=== PATIENT | male | born 1965 | race African-American/Black ===

== ENCOUNTER 2020-06-30 09:53 | Emergency (ER) | payer MEDICAID, OTHER ==
[~2020-06-30] VITALS: Ht 170.2 cm; Wt 117.0 kg
[2020-06-30] MEDS ORDERED: LIDOCAINE 5% PATCH TOP SCH (10:15)
[2020-06-30] MEDS ORDERED: ACETAMINOPHEN 325MG TABLET PO ONE (10:15)
[2020-06-30 10:49] LABS: BASOPHILS % 0.4 % (0.0-2.0); EOSINOPHILS % 1.2 % (0.0-5.0); HEMATOCRIT. 41.1 % (42.0-52.0); HEMOGLOBIN. 14.6 g/dL (14.0-18.0); LYMPHOCYTES % 27.4 % (20.0-50.0); MEAN CORPUSCULAR VOLUME 81.8 fL (80.0-94.0); MEAN PLATELET VOLUME 10.4 fl (7.4-10.4); MONOCYTES % 5.5 % (2.0-8.0); NEUTROPHILS % 65.5 % (40.0-76.0); PLATELET 229 x1000/uL (130-400); RED BLOOD CELL COUNT 5.02 mill/uL (4.7-6.1); RED CELL DISTRIBUTION WIDTH 13.9 % (11.6-14.6)
[2020-06-30 10:58] LABS: *BARBITURATES SCREEN URINE NEGATIVE (NEGATIVE); *COCAINE SCREEN URINE NEGATIVE (NEGATIVE); CHLORIDE 103 mEq/L (98-107)
[2020-06-30 10:59] LABS: *AMPHETAMINES SCREEN URINE NEGATIVE (NEGATIVE); *BENZODIAZEPINES SCREEN URINE NEGATIVE (NEGATIVE); CANNABINOID URINE SCREEN NEGATIVE (NEGATIVE); METHADONE URINE SCREEN NEGATIVE (NEGATIVE); OPIATES URINE SCREEN NEGATIVE (NEGATIVE); PHENCYCLIDINE URINE SCREEN NEGATIVE (NEGATIVE)
[2020-06-30 11:02] LABS: ETHANOL BLOOD < 10 mg/dL
[2020-06-30] MEDS ORDERED: ASPIRIN 325MG EC TABLET PO ONE (15:15)
[2020-06-30] MEDS ORDERED: DEXT 5%/0.9% NACL 500 ML IV ONE (16:45)
[2020-06-30] MEDS ORDERED: HYDRALAZINE 20MG/ML VIAL IV ONE (18:00)
[2020-06-30 19:38] VITALS: BP 158/99
== END 2020-06-30 19:40 | disposition left against medical advice (07) ==
LOC: ER 09:53
DX: R53.1 Weakness (principal); R55 Syncope and collapse; I10 Essential (primary) hypertension; R94.31 Abnormal electrocardiogram [ECG] [EKG]; E86.0 Dehydration; Z20.822 Contact with and (suspected) exposure to COVID-19; Z53.29 Procedure and treatment not carried out because of patient's decision for other reasons
CPT/HCPCS: 36415; 71045; 80053; 80305; 80320; 82962; 83880; 84484; 85025; 87426; 93005; 96361; 96374; 99285; J0360; J7042; G0480

== ENCOUNTER 2021-09-02 16:07 | Emergency (ER) | payer OTHER ==
[~2021-09-02] VITALS: Ht 172.7 cm; Wt 122.0 kg
[~2021-09-02 16:07] MED LIST: ATOR20TA MT; GABA-532 MT; HYDR-4009 MT; HYDR25TA MT; INSU100I28 SQ; LISI20TA31 MT
[2021-09-02 16:15] VITALS: BP 124/91
== END 2021-09-02 23:10 | disposition left against medical advice (07) ==
LOC: ER 16:07
DX: Z53.21 Procedure and treatment not carried out due to patient leaving prior to being seen by health care provider (principal)

== ENCOUNTER 2021-11-17 10:49 | Emergency (ER) | payer MEDICAID, OTHER ==
[~2021-11-17] VITALS: Ht 177.8 cm; Wt 110.0 kg
[2021-11-17 12:36] LABS: BASOPHILS % 0.6 % (0.0-2.0); EOSINOPHILS % 1.4 % (0.0-5.0); HEMATOCRIT. 35.2 % (42.0-52.0); HEMOGLOBIN. 12.4 g/dL (14.0-18.0); LYMPHOCYTES % 15.8 % (20.0-50.0); MEAN CORPUSCULAR HEMOGLOBIN 29.2 pg (28.0-32.0); MEAN CORPUSCULAR VOLUME 82.7 fL (80.0-94.0); MEAN PLATELET VOLUME 10.5 fl (7.4-10.4); MONOCYTES % 7.3 % (2.0-8.0); NEUTROPHILS % 74.9 % (40.0-76.0); PLATELET 218 x1000/uL (130-400); RED BLOOD CELL COUNT 4.26 mill/uL (4.7-6.1); RED CELL DISTRIBUTION WIDTH 14.2 % (11.6-14.6)
[2021-11-17] MEDS ORDERED: ACETAMINOPHEN 325MG TABLET PO NR (12:45)
[2021-11-17 12:48] LABS: CHLORIDE 107 mEq/L (98-107)
[2021-11-17 13:09] LABS: ETHANOL BLOOD < 10 mg/dL
[2021-11-17 13:55] LABS: CLARITY URINE CLEAR (CLEAR); COLOR URINE YELLOW (YELLOW)
[2021-11-17 13:57] LABS: PROTEIN URINE 3+ (NEGATIVE); SPECIFIC GRAVITY URINE 1.019 (1.005-1.030)
[2021-11-17 13:58] LABS: KETONES URINE NEGATIVE (NEGATIVE); NITRITE URINE NEGATIVE (NEGATIVE); OCCULT BLOOD URINE NEGATIVE (NEGATIVE); UROBILINOGEN URINE 0.2 E.U./dL (0.2-1.0)
[2021-11-17 13:59] LABS: LEUKOCYTE ESTERASE URINE NEGATIVE (NEGATIVE)
[2021-11-17 14:42] LABS: *AMPHETAMINES SCREEN URINE NEGATIVE (NEGATIVE); *BARBITURATES SCREEN URINE NEGATIVE (NEGATIVE); *BENZODIAZEPINES SCREEN URINE NEGATIVE (NEGATIVE); *COCAINE SCREEN URINE NEGATIVE (NEGATIVE); CANNABINOID URINE SCREEN NEGATIVE (NEGATIVE); METHADONE URINE SCREEN NEGATIVE (NEGATIVE); OPIATES URINE SCREEN NEGATIVE (NEGATIVE); PHENCYCLIDINE URINE SCREEN NEGATIVE (NEGATIVE)
[2021-11-17] MEDS ORDERED: ACYCLOVIR 200MG CAPSULE PO NR (15:15)
[2021-11-17] MEDS ORDERED: CEPHALEXIN 250MG CAPSULE PO NR (15:15)
[2021-11-17] MEDS ORDERED: CEPH500C2 MT (15:17)
[2021-11-17] MEDS ORDERED: ACET-2708 MT (15:17)
[2021-11-17] MEDS ORDERED: ACYC200C31 MT (15:17)
[2021-11-17 15:31] VITALS: BP 146/86
== END 2021-11-17 15:32 | disposition home or self-care (01) ==
LOC: ER 12:41
DX: B02.9 Zoster without complications (principal); L03.811 Cellulitis of head [any part, except face]; I10 Essential (primary) hypertension; E11.9 Type 2 diabetes mellitus without complications
CPT/HCPCS: 36415; 80053; 80305; 80320; 81003; 85025; 99283; G0480

== ENCOUNTER 2021-12-16 11:29 | Emergency (ER) | payer MEDICAID, OTHER ==
[~2021-12-16] VITALS: Ht 175.3 cm; Wt 105.0 kg
[~2021-12-16 11:29] MED LIST changes: +ACET-2708 MT; +ACYC200C31 MT; +CEPH500C2 MT
[2021-12-16 11:44] VITALS: BP 164/86
[2021-12-16] MEDS ORDERED: BO1 TP (13:43)
[2021-12-16] MEDS ORDERED: CEPH500T MT (13:43)
== END 2021-12-16 14:02 | disposition home or self-care (01) ==
LOC: ER 11:29
DX: L73.9 Follicular disorder, unspecified (principal)
CPT/HCPCS: 99283

== ENCOUNTER 2022-01-31 15:13 | Emergency (ER) | payer OTHER ==
[~2022-01-31] VITALS: Ht 177.8 cm; Wt 115.0 kg
[~2022-01-31 15:13] MED LIST changes: +BO1 TP; +CEPH500T MT
[2022-01-31 15:31] VITALS: BP 172/84
[2022-02-01] MEDS ORDERED: SULF1TAB47 MT (09:27)
== END 2022-01-31 21:35 | disposition left against medical advice (07) ==
LOC: ER 15:23
DX: Z53.21 Procedure and treatment not carried out due to patient leaving prior to being seen by health care provider (principal)

== ENCOUNTER 2022-02-01 08:42 | Emergency (ER) | payer MEDICARE, MEDICAID ==
[~2022-02-01] VITALS: Ht 175.3 cm; Wt 127.0 kg
[2022-02-01 08:48] VITALS: BP 192/91
[2022-02-01] MEDS ORDERED: SULF1TAB47 MT (09:27)
[2022-02-01] MEDS ORDERED: ACETAMINOPHEN 325MG TABLET PO ONE (09:30)
== END 2022-02-01 10:01 | disposition home or self-care (01) ==
LOC: ER 08:42
DX: L03.311 Cellulitis of abdominal wall (principal); B02.9 Zoster without complications; R51.9 Headache, unspecified; I10 Essential (primary) hypertension; E11.9 Type 2 diabetes mellitus without complications; E78.00 Pure hypercholesterolemia, unspecified; Z79.4 Long term (current) use of insulin; Z79.899 Other long term (current) drug therapy
CPT/HCPCS: 99282; 99283

== ENCOUNTER 2022-02-15 08:43 | Inpatient (IN) | payer MEDICAID, MEDICARE, OTHER ==
[~2022-02-15] VITALS: Ht 172.7 cm; Wt 137.9 kg
[~2022-02-15 08:43] MED LIST changes: +SULF1TAB47 MT
[2022-02-15] MEDS ORDERED: ASPIRIN 325MG EC TABLET PO NR (09:45)
[2022-02-15 10:02] LABS: BASOPHILS % 0.7 % (0.0-2.0); EOSINOPHILS % 2.1 % (0.0-5.0); HEMATOCRIT. 33.3 % (42.0-52.0); HEMOGLOBIN. 11.4 g/dL (14.0-18.0); LYMPHOCYTES % 21.7 % (20.0-50.0); MEAN CORPUSCULAR VOLUME 84.8 fL (80.0-94.0); MEAN PLATELET VOLUME 9.9 fl (7.4-10.4); MONOCYTES % 7.1 % (2.0-8.0); NEUTROPHILS % 68.4 % (40.0-76.0); PLATELET 248 x1000/uL (130-400); RED BLOOD CELL COUNT 3.93 mill/uL (4.7-6.1); RED CELL DISTRIBUTION WIDTH 14.7 % (11.6-14.6)
[2022-02-15 10:20] LABS: CHLORIDE 109 mEq/L (98-107)
[2022-02-15 10:30] LABS: ETHANOL BLOOD < 10 mg/dL
[2022-02-15 10:51] LABS: *AMPHETAMINES SCREEN URINE NEGATIVE (NEGATIVE); *BARBITURATES SCREEN URINE NEGATIVE (NEGATIVE); *BENZODIAZEPINES SCREEN URINE NEGATIVE (NEGATIVE); *COCAINE SCREEN URINE NEGATIVE (NEGATIVE); CANNABINOID URINE SCREEN NEGATIVE (NEGATIVE); METHADONE URINE SCREEN NEGATIVE (NEGATIVE); OPIATES URINE SCREEN NEGATIVE (NEGATIVE); PHENCYCLIDINE URINE SCREEN NEGATIVE (NEGATIVE)
[2022-02-15] MEDS ORDERED: HYDROCHLOROTHIAZIDE 25MG TABLET PO ONE (13:15)
[2022-02-15] MEDS: CLONIDINE 0.2MG TABLET PO SCH ×2 (19:08→19:10)
[2022-02-15 20:30] VITALS: BP 150/89
[2022-02-15 20:50] VITALS: BP 176/81
[2022-02-15 21:02] VITALS: BP 176/81
[2022-02-15] MEDS ORDERED: DEXTROSE 50% WATER 50ML SYRINGE IV PRN (22:30)
[2022-02-16] VITALS: BP 146/75
[2022-02-16 04:00] VITALS: BP 159/79
[2022-02-16 06:58] LABS: BASOPHILS % 0.6 % (0.0-2.0); EOSINOPHILS % 2.3 % (0.0-5.0); HEMATOCRIT. 34.4 % (42.0-52.0); HEMOGLOBIN. 11.9 g/dL (14.0-18.0); LYMPHOCYTES % 25.1 % (20.0-50.0); MEAN CORPUSCULAR HEMOGLOBIN 29.2 pg (28.0-32.0); MEAN PLATELET VOLUME 10.1 fl (7.4-10.4); MONOCYTES % 7.7 % (2.0-8.0); NEUTROPHILS % 64.3 % (40.0-76.0); PLATELET 228 x1000/uL (130-400); RED BLOOD CELL COUNT 4.09 mill/uL (4.7-6.1); RED CELL DISTRIBUTION WIDTH 15.3 % (11.6-14.6)
[2022-02-16] MEDS: INSULIN LISPRO 100 UNITS/ML SUBCUT SCH ×4 (07:12→21:58)
[2022-02-16] MEDS: BLOOD SUGAR DIAGNOSTIC STRIP TEST SCH ×4 (07:13→21:00)
[2022-02-16 08:00] VITALS: BP 98/63
[2022-02-16] MEDS: ASPIRIN 81MG TABLET PO SCH (08:23)
[2022-02-16] MEDS: GABAPENTIN 300MG CAPSULE PO SCH ×3 (08:24→17:41)
[2022-02-16] MEDS ORDERED: LISINOPRIL 20MG TABLET PO SCH (09:00)
[2022-02-16] MEDS ORDERED: FUROSEMIDE 40MG TABLET PO SCH (09:00)
[2022-02-16] MEDS ORDERED: METOPROLOL SUCCINATE 50MG ER TABLET PO SCH (09:00)
[2022-02-16] MEDS ORDERED: INSULIN GLARGINE 100 UNITS/ML SUBCUT SCH ×2 (10:00→22:00)
[2022-02-16 12:00] VITALS: BP 160/94
[2022-02-16] MEDS: AMLODIPINE 5MG TABLET PO SCH (12:50)
[2022-02-16] MEDS ORDERED: REGADENOSON 0.4 MG/5 ML IV NR (13:45)
[2022-02-16] MEDS: CARVEDILOL 6.25 MG TABLET PO SCH ×2 (14:23→21:55)
[2022-02-16 16:00] VITALS: BP 155/65
[2022-02-16] MEDS: FUROSEMIDE 40MG/4ML VIAL IVP SCH (17:40)
[2022-02-16 20:00] VITALS: BP 146/61
[2022-02-16] MEDS ORDERED: ATORVASTATIN CALCIUM 20MG TABLET PO SCH (21:00)
[2022-02-17] VITALS: BP 117/54
[2022-02-17 04:00] VITALS: BP 143/65
[2022-02-17] MEDS: INSULIN LISPRO 100 UNITS/ML SUBCUT SCH ×3 (06:39→11:43)
[2022-02-17] MEDS: BLOOD SUGAR DIAGNOSTIC STRIP TEST SCH ×2 (06:39→11:37)
[2022-02-17] MEDS: FUROSEMIDE 40MG/4ML VIAL IVP SCH (06:39)
[2022-02-17 08:00] VITALS: BP 147/80
[2022-02-17] MEDS ORDERED: LISINOPRIL 20MG TABLET PO SCH (09:00)
[2022-02-17] MEDS ORDERED: AMLODIPINE 5MG TABLET PO SCH (09:00)
[2022-02-17] MEDS ORDERED: INSULIN GLARGINE 100 UNITS/ML SUBCUT SCH (10:00)
[2022-02-17] MEDS: ASPIRIN 81MG TABLET PO SCH (11:40)
[2022-02-17] MEDS: GABAPENTIN 300MG CAPSULE PO SCH (11:40)
[2022-02-17] MEDS: CARVEDILOL 6.25 MG TABLET PO SCH (11:41)
[2022-02-17] MEDS: AMLODIPINE 5MG TABLET PO SCH (11:41)
[2022-02-17 12:00] VITALS: BP 151/89
[2022-02-17] MEDS ORDERED: COR6 PO (16:11)
[2022-02-17] MEDS ORDERED: FURO-151 MT (16:52)
== END 2022-02-17 20:00 | disposition home or self-care (01) | DRG 198 ==
LOC: ER 08:43 → 8WST 14:49
PROVIDERS: ADMIT Internal Medicine; ATTEND Internal Medicine
DX: I20.0 Unstable angina (principal); I50.33 Acute on chronic diastolic (congestive) heart failure; E11.22 Type 2 diabetes mellitus with diabetic chronic kidney disease; I16.0 Hypertensive urgency; Z20.822 Contact with and (suspected) exposure to COVID-19; I13.0 Hypertensive heart and chronic kidney disease with heart failure and stage 1 through stage 4 chronic kidney disease, or unspecified chronic kidney disease; N18.9 Chronic kidney disease, unspecified; E78.00 Pure hypercholesterolemia, unspecified; E66.9 Obesity, unspecified; E11.65 Type 2 diabetes mellitus with hyperglycemia; Z68.42 Body mass index [BMI] 45.0-49.9, adult; Z87.891 Personal history of nicotine dependence; Z79.4 Long term (current) use of insulin; Z82.49 Family history of ischemic heart disease and other diseases of the circulatory system; Z83.3 Family history of diabetes mellitus
CPT/HCPCS: 36415; 71045; 78452; 80048; 80053; 80061; 80305; 80320; 82962; 83036; 83880; 84484; 85025; 87426; 93005; 93017; 93306; 99285; A9500; J1815; J1940; J2785; G0480

== ENCOUNTER 2022-04-22 16:53 | Emergency (ER) | payer MEDICARE, OTHER ==
[~2022-04-22] VITALS: Ht 175.3 cm; Wt 128.0 kg
[~2022-04-22 16:53] MED LIST changes: +COR6 PO; +FURO-151 MT
[2022-04-22 17:16] VITALS: BP 160/70
[2022-04-22] MEDS ORDERED: CEPH500T PO (18:55)
[2022-04-22] MEDS ORDERED: SULF1TAB48 PO (18:55)
[2022-04-22] MEDS ORDERED: VALA100044 PO (20:08)
== END 2022-04-22 20:20 | disposition home or self-care (01) ==
LOC: ER 16:53
DX: B02.8 Zoster with other complications (principal); L03.221 Cellulitis of neck
CPT/HCPCS: 99283

== ENCOUNTER 2022-04-27 07:27 | Emergency (ER) | payer MEDICARE, OTHER ==
[~2022-04-27] VITALS: Ht 175.3 cm; Wt 127.0 kg
[~2022-04-27 07:27] MED LIST changes: +CEPH500T PO; +SULF1TAB48 PO; +VALA100044 PO
[2022-04-27 07:37] VITALS: BP 191/75
[2022-04-27] MEDS ORDERED: TOPUD PO (08:00)
== END 2022-04-27 08:25 | disposition home or self-care (01) ==
LOC: ER 07:27
DX: J02.9 Acute pharyngitis, unspecified (principal); H92.02 Otalgia, left ear; I10 Essential (primary) hypertension; E11.9 Type 2 diabetes mellitus without complications; Z86.19 Personal history of other infectious and parasitic diseases; Z79.4 Long term (current) use of insulin; Z79.899 Other long term (current) drug therapy
CPT/HCPCS: 99281

== ENCOUNTER 2022-09-13 15:45 | Emergency (ER) | payer MEDICARE, OTHER ==
[~2022-09-13] VITALS: Ht 175.3 cm; Wt 127.3 kg
[~2022-09-13 15:45] MED LIST changes: +TOPUD PO
[2022-09-13 15:51] VITALS: BP 143/76; RESP 18; TEMP 98.7; O2SAT 98
[2022-09-13 15:55] VITALS: PULSE 85
[2022-09-16] MEDS ORDERED: ACET-2708 MT (09:30)
[2022-09-16] MEDS ORDERED: CLIN-194 MT (09:30)
== END 2022-09-13 23:18 | disposition left against medical advice (07) ==
LOC: ER 15:45
DX: Z53.21 Procedure and treatment not carried out due to patient leaving prior to being seen by health care provider (principal)
CPT/HCPCS: 99281